=== PATIENT | female | born 1960 | race Caucasian/White ===

== ENCOUNTER 2017-09-27 14:34 | Outpatient (CLI) | payer OTHER ==
--- NOTE | 2017-09-27 15:44 | MMO ---
BILATERAL MAMMOGRAMS 09/27/17 HISTORY: Screening mammography. COMPARISON: Multiple studies dating back to 12/26/07. FINDINGS: Scattered fibroglandular densities and benign appearing calcifications are again demonstrated. No dom inant mass or suspicious calcifications. Study was evaluated with the assistance of computer aided de tection. IMPRESSION: BI-RADS 1: Negative Routine annual screening mammography (for women over age 40) POS: [facility]
== END 2017-09-27 14:35 | disposition home or self-care (01) ==
LOC: SCSMAMMO 14:34
PROVIDERS: ATTEND Nurse Practitioner Family
DX: Z12.31 Encounter for screening mammogram for malignant neoplasm of breast (principal)
CPT/HCPCS: 77067

== ENCOUNTER 2021-02-06 16:08 | Outpatient (CLI) | payer BC | END 2021-02-06 16:09 | disposition home or self-care (01) | LOC: CTENTCT 16:08 | PROVIDERS: ATTEND Family Medicine | DX: J32.9 Chronic sinusitis, unspecified (principal) | CPT/HCPCS: 70486 ==